=== PATIENT | female | born 1985 | race Caucasian/White ===

== ENCOUNTER 2020-06-10 09:01 | Outpatient (NON) | payer OTHER, SELFPAY ==
[2020-06-10 14:17] LABS: Influenza Control Positive
[2020-06-10 21:58] LABS: SARS-CoV-2 RNA PCR Negative
== END 2020-06-10 09:02 ==
LOC: ANHCOVIDDT 09:02
PROVIDERS: PCP Family Medicine; Visit Provider Family Medicine
DX: Z20.822 Contact with and (suspected) exposure to COVID-19 (principal); R05 Cough
CPT/HCPCS: 87804; C9803; U0003; U0005

== ENCOUNTER 2020-10-19 13:05 | Emergency (ER) | payer OTHER, SELFPAY ==
--- NOTE | ~2020-10-19 | XR_ITS ---
XR hip RT min 3V w AP pelvis 10/19/2020 15:14 INDICATION: Right anterior hip pain PROCEDURE: AP pelvis and 3 views right hip COMPARISON: No prior studies for comparison. FINDINGS: Fracture, dislocation or subluxation is not identified. Pelvic rings are intact. The soft t issues appear within normal limits. No foreign bodies are identified. IMPRESSION: 1: NO ACUTE BONE OR JOINT ABNORMALITY IDENTIFIED. Reviewed, dictated and finalized at location A.
--- NOTE | ~2020-10-19 | XR_ITS ---
XR elbow RT min 3V 10/19/2020 15:13 INDICATION: Right elbow pain after fall PROCEDURE: 4 views right elbow COMPARISON: No prior studies for comparison. FINDINGS: Fracture, dislocation or subluxation is not identified. The soft tissues appear within norm al limits. No foreign bodies are identified. IMPRESSION: 1: NO ACUTE BONE OR JOINT ABNORMALITY IDENTIFIED. Reviewed, dictated and finalized at location A.
[2020-10-19 13:47] VITALS: BP 122/78; PULSE 88; RESP 18; TEMP 36.8; O2SAT 100
[2020-10-19 15:00] VITALS: BP 115/70; PULSE 70; RESP 18; TEMP 36.4; O2SAT 100
--- NOTE | 2020-10-19 15:18 | ED.WOUNDLAC ---
HPI - Wound/Laceration General Chief Complaint: Wound/Laceration Stated Complaint: FALL, LACERATION Time Seen by Provider: 10/19/20 13:43 Source: patient Mode of arrival: ambulatory Limitations: no limitations History of Present Illness HPI narrative: This is a 35-year-old female that presents the emergency department for laceration to right hip sustained 2 days ago. Reports she was running and tripped and fell. Reports she landed on her right hip. Also reports scraping her right elbow. Reports she is not up-to-date on tetanus. Reports she came to be seen today as her wound on her right hip kept bleeding. Denies fever, hitting her head, loss of consciousness, decreased ROM or numbness. Related Data Home Medications Medication Instructions Recorded Confirmed Ritalin 05/06/19 bupropion HCl 150 mg 24 hr tablet, 150 mg PO BID tablet 06/10/20 extended release Allergies Allergy/AdvReac Type Severity Reaction Status Date / Time Latex, Natural Rubber Allergy Rash Verified 06/10/20 08:28 Review of Systems Review of Systems: Narrative: CONSTITUTIONAL: Denies fever SKIN: Reports laceration MUSCULOSKELETAL: Denies back pain, joint pain, or myalgia. NEUROLOGIC: Denies numbness, or weakness. All systems reviewed & are unremarkable except as noted in HPI and below PMFSH Past Medical History Medical History (Updated 10/19/20 @ 16:34 by Becca Lombardi PA-C) Depression Surgical History Surgical History History of partial hysterectomy [place] teeth removed Family History Family History Grandparent Family history of emphysema Family history of malignant neoplasm of breast in first degree relative Social History Social History Smoking status: Never smoker Second hand tobacco smoke exposure: No Alcohol intake: current Drinks per week: 4 Substance use: never Substance use type: does not use Gender identity (if verbalized by the patient): Female Spiritual care concerns: No Agree to blood products: Yes Exam Narrative: Exam Narrative: GENERAL: Well-appearing, well-nourished, and in no acute distress. HEAD: Normocephalic, atraumatic. EYES: PERRLA and EOMI. ENT: Nares clear, no rhinorrhea or epistaxis. Mucous membranes moist. Oropharynx without tonsillar hypertrophy exudate or other lesions. NECK: Supple. No adenopathy or masses. CHEST: Clear to auscultation. No respiratory distress. No wheezes rales or rhonchi HEART: Regular rate and rhythm. No murmur heard. Normal peripheral pulses. EXTREMITIES: Normal range of motion. No edema or obvious deformity. Superficial abrasion over right elbow. Right hip with bruising and 1 cm linear laceration that is superficial without active bleeding. No surrounding erythema or edema to suggest infection. Normal peripheral pulses. Normal sensation SKIN: Warm, dry, no rash. NEURO: No focal deficits. Alert and oriented x3. PSYCH: Normal mood and affect Course Vital Signs Vital signs: Vital Signs Temperature 98.3 F 10/19/20 13:47 Pulse Rate 88 10/19/20 13:47 Respiratory Rate 18 10/19/20 13:47 Blood Pressure 122/78 10/19/20 13:47 Pulse Oximetry 100 10/19/20 13:47 Temperature 98.3 F 10/19/20 13:47 Pulse Rate 88 10/19/20 13:47 Respiratory Rate 18 10/19/20 13:47 Blood Pressure 122/78 10/19/20 13:47 Pulse Oximetry 100 10/19/20 13:47 MDM - Wound/Laceration MDM Narrative Medical decision making narrative: Patient presents to the emergency department after a laceration sustained 2 days ago to her right hip. Also reporting injury to the right elbow. Right hip and elbow x-rays are without acute osseous abnormalities. Patient was updated on tetanus. Her wounds were cleansed. She has a small superficial laceration to the right hip. This will heal wel
[2020-10-19] MEDS: TETANUS,DIPHTHERIA,AC PERTUSSIS ADULT (0.5 ML) BOOSTRIX IM (15:26)
== END 2020-10-19 16:44 | disposition home or self-care (01) ==
PROVIDERS: Emergency Provider Emergency Medicine; PCP Family Medicine
DX: S71.011A Laceration without foreign body, right hip, initial encounter (principal); Z23 Encounter for immunization; F32.9 Major depressive disorder, single episode, unspecified; W01.0XXA Fall on same level from slipping, tripping and stumbling without subsequent striking against object, initial encounter
CPT/HCPCS: 73080; 73502; 90471; 90715; 99284

== ENCOUNTER → 2021-10-29 02:22 | Outpatient (CLI) | payer OTHER, SELFPAY ==
[2021-10-29 16:50] LABS: SARS-CoV-2 RNA PCR Positive
== END ==
PROVIDERS: PCP Family Medicine; Visit Provider Family Medicine
DX: R05.9 Cough, unspecified (principal); Z20.822 Contact with and (suspected) exposure to COVID-19
CPT/HCPCS: C9803; U0003; U0005

== ENCOUNTER 2021-12-31 10:52 | Emergency (ER) | payer OTHER, SELFPAY ==
--- NOTE | ~2021-12-31 | XR_ITS ---
EXAMINATION: XR foot LT min 3V DATE: 12/31/2021 11:32 INDICATION: Left foot pain TECHNIQUE: Dorsoplantar, lateral, and 2 oblique views of the left foot were obtained. COMPARISON: None. FINDINGS: There is no fracture, dislocation, or subluxation. Posterior and plantar calcaneal enthesop hytes are noted. The bones, soft tissues, and joint spaces are otherwise normal. IMPRESSION: 1. No acute osseous abnormality. Reviewed, dictated and finalized at location A.
--- NOTE | ~2021-12-31 | XR_ITS ---
EXAMINATION: XR ankle LT min 3V DATE: 12/31/2021 11:31 INDICATION: Left ankle pain TECHNIQUE: Anteroposterior, lateral, mortise, and additional oblique view of the ankle were obtained. COMPARISON: None. FINDINGS: There is no fracture, dislocation, or subluxation. Posterior and plantar calcaneal enthesop hytes are noted. The bones, soft tissues, and joint spaces are otherwise normal. IMPRESSION: 1. No acute osseous abnormality. Reviewed, dictated and finalized at location A.
--- NOTE | 2021-12-31 11:14 | ED.LOWEXIN ---
HPI - Extremity Injury (Lower) General Chief Complaint: Extremity Injury, Lower Stated Complaint: fall with left ankle pain that occured 4 day ago Time Seen by Provider: 12/31/21 11:00 History of Present Illness HPI Narrative: This is a 36-year-old female with no significant past medical history, presenting the emergency department complaining of 4 out of 10 left left foot pain after rolling the ankle to 4 days ago. She states she was stepping down from a concrete step when she missed stepped rolling the ankle which. She does not know which direction. She denies falls or striking her head. She denies any preceding symptoms. She intermittently has 8 out of 10 pain with weightbearing. Related Data Home Medications Medication Instructions Recorded Confirmed Ritalin 05/06/19 10/27/21 bupropion HCl 150 mg 24 hr tablet, 150 mg PO BID 06/10/20 10/27/21 extended release (Wellbutrin XL) Allergies Allergy/AdvReac Type Severity Reaction Status Date / Time Latex, Natural Rubber Allergy Rash Verified 12/31/21 10:52 Review of Systems Review of Systems: CONSTITUTIONAL: Denies fever, chills, or sweats. EYES: Denies visual changes, redness, or discharge. ENT: Denies rhinorrhea, congestion, sore throat, or otalgia. CARDIOVASCULAR: Denies chest pain, palpitations, or edema. RESPIRATORY: Denies cough or dyspnea. GASTROINTESTINAL: Denies abdominal pain, nausea, vomiting, or diarrhea. GENITOURINARY: Denies dysuria or hematuria. SKIN: Denies rash or itching. MUSCULOSKELETAL: Left ankle pain denies back pain, joint pain, or myalgia. NEUROLOGIC: Denies headache, numbness, dizziness, or weakness. PSYCHIATRIC: Denies anxiety or depression. [facility] Past Medical History Medical History Depression Surgical History Surgical History History of partial hysterectomy [place] teeth removed Family History Family History Grandparent Family history of emphysema Family history of malignant neoplasm of breast in first degree relative Social History Social History Smoking status: Never smoker Second hand tobacco smoke exposure: No Alcohol intake: current Drinks per week: 4 Alcohol use details: beer/once every 2 weeks Substance use: never Substance use type: does not use Gender identity (if verbalized by the patient): Female Spiritual care concerns: No Agree to blood products: Yes Exam Narrative: GENERAL: Well-appearing, well-nourished, and in no acute distress. HEAD: Normocephalic, atraumatic. EYES: PERRLA and EOMI. ENT: Nares clear, no rhinorrhea or epistaxis. Mucous membranes moist. Oropharynx without tonsillar hypertrophy exudate or other lesions. Bilateral TMs pearly dalal nonbulging NECK: Supple. No adenopathy or masses. No carotid bruits or JVD CHEST: Clear to auscultation. No respiratory distress. No wheezes rales or rhonchi HEART: Regular rate and rhythm. No murmur heard. Normal peripheral pulses. ABDOMEN: Soft, nontender, nondistended, normal active bowel sounds. EXTREMITIES: Mild tenderness to palpation over the dorsum of the left foot over the fourth metatarsal SKIN: Warm, dry, no rash. NEURO: No focal deficits. Alert and oriented x3. PSYCH: Normal mood and affect. Course Course Emergency Course: 12:16 -negative for fracture dislocation. Discussed rice therapy with the patient. Discussed return emergency precautions including signs or symptoms of infectious process. Patient voiced understanding is comfortable with the plan. All questions answered to her satisfaction. MDM - Extremity Injury (Lower) MDM Narrative Medical decision making narrative: Plan: Imaging, pain control, reassess Differential Diagnosis Differential diagnosis: Likely ankle sprain and strain, frac
[2021-12-31] MEDS: ACETAMINOPHEN 500 MG TABLET 1000 MG PO (11:41)
== END 2021-12-31 12:21 | disposition home or self-care (01) ==
PROVIDERS: Emergency Provider Preventive Medicine Aerospace Medicine; PCP Family Medicine
DX: S93.602A Unspecified sprain of left foot, initial encounter (principal); F32.A Depression, unspecified; Z90.711 Acquired absence of uterus with remaining cervical stump; X50.9XXA Other and unspecified overexertion or strenuous movements or postures, initial encounter
CPT/HCPCS: 73610; 73630; 99283; A9270

== ENCOUNTER 2024-02-21 10:00 | Outpatient (CLI) | payer OTHER, SELFPAY ==
--- NOTE | ~2024-02-21 | XR_ITS ---
[id number] Ordering provider: Tisha Marsh, MOBILE UI DEVELOPER History: . CERVICALGIA . Comparison: None. FINDINGS: VERTEBRAL BODIES: Normal height and alignment. No visible fracture or subluxation. The dens is intact . DISK SPACES: Well maintained. PARASPINOUS SOFT TISSUES: No prevertebral soft tissue swelling. IMPRESSION: No acute osseous abnormality cervical spine. Reviewed, dictated and finalized at location A.
== END 2024-02-21 12:06 | disposition home or self-care (01) ==
PROVIDERS: PCP Nurse Practitioner Family; Visit Provider Nurse Practitioner Family
DX: M54.2 Cervicalgia (principal)
CPT/HCPCS: 72040

== ENCOUNTER 2024-04-10 07:08 | Outpatient (CLI) | payer OTHER, SELFPAY ==
--- NOTE | ~2024-04-10 | MR_ITS ---
MRI of the cervical spine Clinical History: Cervicalgia Technique: Axial T2-weighted and gradient images, and sagittal T1-weighted, T2-weighted, and STIR joseluis ges were acquired. Findings: There is no fracture or subluxation of the cervical spine. Vertebral bodies maintain normal height. No bone marrow signal abnormality seen. No disc bulge or herniation seen at any cervical level. No spinal canal stenosis, cord compression, o r neural foraminal narrowing evident at any cervical level. There are scattered minimal facet joint d egenerative changes in the cervical spine. No abnormal signal seen in the spinal cord. No epidural mass or collection seen. Paravertebral soft t issues are unremarkable. Impression: No significant abnormality seen. Reviewed, dictated and finalized at location M. ED TRANSFER OPERATOR Impression: No significant abnormality seen.
== END 2024-04-10 07:09 | disposition home or self-care (01) ==
LOC: MICIMG 07:10
PROVIDERS: PCP Nurse Practitioner Family; Visit Provider Nurse Practitioner Family
DX: M54.2 Cervicalgia (principal)
CPT/HCPCS: 72141

== ENCOUNTER 2024-10-23 13:51 | Outpatient (CLI) | payer OTHER, SELFPAY ==
--- NOTE | ~2024-10-23 | MM_ITS ---
EXAMINATION: MM screening [facility] BI w ryann INDICATION: Asymptomatic, referred for screening mammogram COMPARISON: Baseline TECHNIQUE: Digital Breast Tomosynthesis CC, MLO views of Both breasts were obtained with computer-ai ded detection to assist in interpretation of the study. FINDINGS: The breasts are heterogeneously dense, which may obscure small masses. There is a mass in the superior central right breast at anterior to middle depth. In addition, there is an asymmetry is seen on the cc view in the lateral right breast centered at 5.6 cm posterior to t he nipple. Benign-appearing round calcifications diffusely scattered in both breasts. No other focal dominant mass, architectural distortion, or suspicious microcalcifications identified. IMPRESSION: 1. Right breast mass and asymmetry. 2. No evidence of malignancy in the Left breast. RECOMMENDATION: Right breast Diagnostic mammogram with true lateral, appropriate spot compression views and an ultras ound if needed. BI-RADS 0, INCOMPLETE, NEEDS ADDITIONAL IMAGING EVALUATION Reviewed, dictated and finalized at location B. IMPRESSION: 1. Right breast mass and asymmetry. 2. No evidence of malignancy in the Left breast. RECOMMENDATION: Right breast Diagnostic mammogram with true lateral, appropriate spot compressi on views and an ultrasound if needed. BI-RADS 0, INCOMPLETE, NEEDS ADDITIONAL IMAGING EVALUATION
== END 2024-10-23 13:52 | disposition home or self-care (01) ==
PROVIDERS: PCP Internal Medicine; Visit Provider Internal Medicine
DX: Z12.31 Encounter for screening mammogram for malignant neoplasm of breast (principal); N64.89 Other specified disorders of breast
CPT/HCPCS: 77063; 77067

== ENCOUNTER 2024-11-20 09:52 | Outpatient (CLI) | payer OTHER, SELFPAY ==
--- NOTE | ~2024-11-20 | MMUS_ITS ---
EXAMINATION: MM diagnostic ashley RT w ryann, US breast RT limited HISTORY: Right breast mass TECHNIQUE: Additional 3-D tomosynthesis images of the right breast were performed and synthetic 2-D i mages were generated. CAD analysis was submitted and interpreted. High resolution limited right breas t ultrasound was performed. COMPARISON: 10/23/2024 BREAST PARENCHYMAL COMPOSITION:Dense: The breasts are heterogeneously dense, which may obscure small masses. FINDINGS: MAMMOGRAPHIC FINDINGS: Spot compression views demonstrate persistent low-density mass at the upper outer right breast measur ing up to approximately 3.7 cm in diameter. ULTRASOUND: At the 11:00 position right breast, 6.5 cm from nipple, there is a 1.0 x 0.5 x 0.9 cm hypoechoic para llel mass versus possibly cyst. Additional lesion seen in the region scanned include additional simpl e cysts, largest measuring up to 2.4 cm in diameter.No overtly suspicious mass evident. IMPRESSION: 1 cm hypoechoic mass at 11:00 position right breast, 6.5 cm from the nipple, probably benign. Six-mo nth follow-up ultrasound recommended. Additional simple breast cysts. No findings overtly suspicious for malignancy. BI-RADS category 3, probably benign findings. Reviewed, dictated and finalized at location M. IMPRESSION: 1 cm hypoechoic mass at 11:00 position right breast, 6.5 cm from the nipple, p robably benign. Six-month follow-up ultrasound recommended. Additional simple breast cysts. No findings overtly suspicious for malignancy. BI-RADS category 3, probably benign findings.
== END 2024-11-20 09:53 | disposition home or self-care (01) ==
LOC: MICIMG 09:53
PROVIDERS: PCP Internal Medicine; Visit Provider Internal Medicine
DX: R92.8 Other abnormal and inconclusive findings on diagnostic imaging of breast (principal)
CPT/HCPCS: 76642; 77061; 77065; G0279